=== PATIENT | male | born 1975 | race Caucasian/White ===

== ENCOUNTER 2020-11-19 03:03 | Emergency (ER) | payer MEDICAID ==
[~2020-11-19] VITALS: Ht 172.7 cm; Wt 87.8 kg
[2020-11-19 03:05] VITALS: BP 186/91
[2020-11-19] MEDS ORDERED: ONDANSETRON 2MG/ML, 2ML IVPush ONE (03:30)
[2020-11-19] MEDS ORDERED: SODIUM CHLORIDE 0.9% 1,000ML IVBOLUS ONE (03:30)
[2020-11-19] MEDS ORDERED: SODIUM CHLORIDE FLUSH 10ML SYR IVF ONE (03:30)
[2020-11-19] MEDS ORDERED: MAALOX/HYOSCYAMINE/LIDOCAINE 45 ML BTL PO ONE (03:30)
[2020-11-19] MEDS ORDERED: FAMOTIDINE 20 MG/2 ML IVPush ONE (03:30)
[2020-11-19 03:55] LABS: BASOPHILS % (AUTO) 1 % (0-1); EOSINOPHILS % (AUTO) 3 % (1-7); LYMPHOCYTES % (AUTO) 21 % (22-44); MEAN CORPUSCULAR HEMOGLOBIN 33.2 pg (27.5-34.5); MEAN CORPUSCULAR HGB CONC 35.7 g/dL (33.2-36.2); MEAN PLATELET VOLUME 8.1 fL (7.4-10.4); MONOCYTES % (AUTO) 8 % (2-9); NEUTROPHILS % (AUTO) 68 % (42-75); PLATELET COUNT 212 x10^3/uL (130-400); RED BLOOD COUNT 4.17 x10^6/uL (4.38-5.82); RED CELL DISTRIBUTION WIDTH 13.8 % (9.4-14.8)
[2020-11-19] MEDS ORDERED: MAALOX/HYOSCYAMINE/LIDOCAINE 45 ML BTL ONE (03:55)
[2020-11-19] MEDS ORDERED: ONDANSETRON 2MG/ML, 2ML ONE (03:55)
[2020-11-19] MEDS ORDERED: FAMOTIDINE 20 MG/2 ML ONE (03:57)
[2020-11-19 04:06] LABS: ALANINE AMINOTRANSFERASE 38 U/L (12-78); ALBUMIN 3.7 g/dL (3.4-5.0); ANION GAP 3 mmol/L (5-15); CALCIUM 8.8 mg/dL (8.5-10.1); CHLORIDE 108 mmol/L (98-107); CREATININE 0.75 mg/dL (0.7-1.3)
--- NOTE | 2020-11-19 04:07 | NUR ---
Went to assess pt and to complete ordered labs, meds. Pt not in room. I walked the ER looking for the patient, and I checked the closests 3 bathrooms. Unable to locate patient at this time. Updated STATUARY PAINTER Sosa.
[2020-11-19 04:11] LABS: ALKALINE PHOSPHATASE 70 U/L (45-117); BILIRUBIN,TOTAL 0.6 mg/dL (0.2-1.0); TOTAL PROTEIN 6.9 g/dL (6.4-8.2)
--- NOTE | 2020-11-19 04:15 | NUR ---
Attempted to complete orders again, pt nowehre to be found. senior sales engineer aware.
--- NOTE | 2020-11-19 04:20 | NUR ---
Pt remains not in ED room. Have checked all ED bathrooms, no belongings left in room. Possible elopement. Devi Swan aware, Trena, online health and fitness coach aware.
--- NOTE | 2020-11-19 04:25 | NUR ---
Final time checking ED room 19. Pt nowhere to be found in room or department. Charting elopement.
== END 2020-11-19 04:27 | disposition left against medical advice (07) ==
LOC: ED 04:00
DX: R10.84 Generalized abdominal pain (principal); R11.2 Nausea with vomiting, unspecified
CPT/HCPCS: 36415; 80053; 83690; 85025; 99283